=== PATIENT | female | born 2000 | race Two or more races ===

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

== ENCOUNTER 2019-04-03 07:55 | Inpatient (IN) | payer OTHER ==
[2019-04-03] MEDS ORDERED: PROMETHAZINE HCL 25 MG/1 ML VIAL IVPUSH PRN (08:28)
[2019-04-03] MEDS ORDERED: BUTORPHANOL TARTRATE 1 MG/ML VIAL IVPB PRN (08:28)
--- NOTE | 2019-04-03 08:31 | HP ---
Past Medical History - Admission Chief Complaint: IOL History of Present Illness: 18yo @ 41+wks, KARIN 03/25/19 here for scheduled IOL for postdates No VB/LOF. Irreg ctx- unaware. +FM Preg c/b obesity History Source: Patient - Past Medical History PROCESS STRIPPER: No: Alzheimer's, CVA, Dementia, Migraine, Multiple Sclerosis, Peripheral Neuropathy, Parkinson's, Seizure, Syncope, TIA, Vertigo, Other Cardiovascular: No: AFIB, Aneurysm, Aortic Insufficiency, Aortic Stenosis, CAD, CHF, Deep Vein Thrombosis, HTN, Hyperlipdemia, OH, Mitral Insufficiency, Mitral Stenosis, Murmur, Pulmonary Hypertension, Other Pulmonary: No: Asthma, Bronchitis, Cancer, COPD, O2 Dependent, Pneumonia, Previously Intubated, Pulmonary Embolus, Pulmonary Fibrosis, Sleep Apnea, Other Gastrointestinal: No: Ascites, Cancer, Constipation, Crohn's Disease, Diverticulitis, Diverticulosis, Esophageal Varices, Gastritis, GERD, GI Bleed, Hemorrhoids, Hiatal Hernia, Inflamatory Bowel Disease, Irritable Bowel Disease, Pancreatitis, Peptic Ulcer Disease, Ulcerative Colitis, Other Hepatobiliary: No: Cirrhosis, Cholelithiasis, Cholecystitis, Choledocholithiasis , Hepatitis A, Hepatitis B, Hepatitis C, Other Renal/: No: Renal Failure, Renal Inusuff, BPH, Cancer, Hematuria, Hemodialysis , Neurogenic Bladder, Renal Calculi, UTI, Other Reproductive: No: Ectopic , Endometriosis, Fibroids, PID, Polycystic Ovary Syndrome, Postmenopausal, Other ...: 1 ...Para: 0 ... Weeks Gestation by Dates: 41.3 ...EDC by Dates: 03/25/19 Heme/Onc: No: Anemia, B12 Deficiency, Bleeding Disorder, Cancer, Current Chemotherapy, Current Radiation Therapy, Hemochromatosis, Hypercoaguable State, Myeloproliferative Synd, Sickle Cell Disease, Sickle Cell Trait, Thrombocytopenia, Other Infectious Disease: No: AIDS, C-Diff, Herpes Zoster, HIV, MRSA, STD's, Tuberculosis, VREF, Other Psych: No: Addictions, Anxiety, Bipolar, Depression, Panic, Psychosis, Schizophrenia, Other Musculoskeletal: No: Bursitis, Chronic low back pain, Hemiparesis, Hemiplegia, Osteoarthritis, Paraplegia, Other Rheumatology: No: Fibromyalgia, Gout, Lupus, Rheumatoid Arthritis, Sarcoidosis, Vasculitis, Other ENT: No: Allergic Rhinitis, Sinusitis, Other - Past Surgical History Hx Myomectomy: No Hx Transabdominal Cerclage: No - Smoking History Smoking history: Never smoked Have you smoked in the past 12 months: No - Alcohol/Substance Use Hx Alcohol Use: No Home Medications - Allergies Allergies/Adverse Reactions: Allergies Allergy/AdvReac Type Severity Reaction Status Date / Time No Known Allergies Allergy Verified 08/14/18 18:38 Physical Exam - Maternity Constitutional: Yes: Well Nourished, No Distress, Calm - Abdominal Exam/OB Number of Fetuses: Single Presentation: Vertex Contractions: Yes Regularity: Irregular Intensity: Unaware Monitor Mode: External Heart Rate Location: [facility] Category: I Accelerations: Non-Uniform Decelerations: None - Vaginal Exam/OB Vaginal Bleediing: No Speculum Exam: No Dilatation (cm): 0 Effacement (%): 0 Amniotic Membrane Status: Intact Meconium: Light Presentation: Vertex/Position Station: -3 - Physical Exam Edema: No Assessment/Plan 18YO @ 41+wks here for IOL for postdates Admit to L&D Cat I tracing Cytotec for ripening; Vega score: 1 Stadol/Epdiural prn Anticipate REJI Contreras MD
[2019-04-03 08:51] VITALS: BMI 43.1
[2019-04-03 10:00] LABS: BASO % 0.2 % (0-2.0); EOS % 0.7 % (0-4.5); HEMATOCRIT 28.5 % (32.4-45.2); HEMOGLOBIN 9.1 GM/dL (10.7-15.3); LYMPH % 24.2 % (8-40); MCH 24.4 pg (25.7-33.7); MEAN PLT VOLUME 8.7 fl (7.5-11.1); MONO % 6.4 % (3.8-10.2); NEUT % 68.5 % (42.8-82.8); PLATELET COUNT 224 K/MM3 (134-434); RBC 3.75 M/mm3 (3.60-5.2); RDW 16.3 % (11.6-15.6); WHITE BLOOD COUNT 6.5 K/mm3 (4.0-10.0)
[2019-04-03] MEDS: MISOPROSTOL 100 MCG TABLET PO SCH ×4 (10:00→23:15)
[2019-04-03 10:19] LABS: PROTHROMBIN TIME (PATIENT) 11.8 SEC (9.7-13.0)
[2019-04-03 10:22] LABS: BLOOD UREA NITROGEN 8.3 mg/dL (7-18); CALCIUM 8.9 mg/dL (8.5-10.1); CREATININE 0.6 mg/dL (0.55-1.3); POTASSIUM 3.7 mmol/L (3.5-5.1)
[2019-04-03] MEDS: ELECTROLYTE-148 SOLN 1,000 ML IV SCH (14:00)
--- NOTE | 2019-04-03 15:27 | PN ---
Progress Note (short form) - Note Progress Note: Patient counseled regarding induction of labor including but not limited to expectation, risks and complications. All questions answered. Pelvic exam will be deferred for now as patient is comfortable.
[2019-04-04] MEDS ORDERED: DINOPROSTONE 10 MG VAGINAL SUPPOSITORY VG ONE (04:18)
--- NOTE | 2019-04-04 04:25 | PN ---
Ante-Partal Exam - Subjective Subjective: Patient evaluated for progression of induction. Comfortable in bed Vital Signs: Vital Signs Temperature 97.5 F L 04/04/19 00:00 Pulse Rate 81 04/04/19 00:00 Respiratory Rate 20 04/04/19 00:00 Blood Pressure 112/60 04/04/19 00:00 O2 Sat by Pulse Oximetry (%) Bleeding: No Headache: No Visual changes: No Right upper quadrant pain: No Pain (scale 1-10): 1 (comfortable) - Contractions Contractions: No Regularity: Irritability Intensity: Unaware Monitor Mode: External - Exam during Labor Heart Rate: 120 (reactive) Variability: Moderate Category: I Monitor Accelerations: Present Monitor Decelerations: None Exam: Vaginal (cervidil place in vaginal vault) Dilatation (cm): 0.5 Effacement (%): 30 Amniotic Membrane Status: Intact Presentation: Vertex Station: -3 - Assessment/Plan Assessment/Plan: 18 y/o G1 @ 41.3wks, induction of labor, reactive FHT, S/P cytotec PO protocol with minimal cervical change, Cervidil in place -Continue IOL -Continuous EFM -Re-evaluate accordingly
[2019-04-04] MEDS: ELECTROLYTE-148 SOLN 1,000 ML IV SCH ×2 (07:00→21:00)
--- NOTE | 2019-04-04 09:51 | PN ---
Progress Note (short form) - Note Progress Note: cx cl;p,vx =3 mi, fhr cat 1, mild irregular contraction , has cervidil
[2019-04-04] MEDS: DEXTROSE 5%-LACTATED RINGERS 1,000 ML IV SCH ×2 (13:00→22:30)
--- NOTE | 2019-04-04 20:38 | PN ---
Progress Note (short form) - Note Progress Note: cx clp vx -3 mi, fhr cat 1, irregular contraction , cervidil was removed at 5 pm , declined pitocin , requesting c/s
[2019-04-04] MEDS ORDERED: CITRIC ACID/SODIUM CITRATE 30 ML UNIT-DOSE CUP PO ONE (20:48)
[2019-04-04] MEDS ORDERED: OXYTOCIN 20 UNITS in 0.9% NS 20 UNIT/1,000 ML INFUS.BAG IV ONE (20:57)
[2019-04-04] MEDS ORDERED: morphine SULFATE/PF 0.5 MG/ML (2cc Syringe - QUVA) ONE (21:00)
[2019-04-04] MEDS ORDERED: ePHEDrine SULFATE 50 MG/1 ML AMPULE ONE (21:00)
[2019-04-04] MEDS ORDERED: ceFAZolin SODIUM 1 GM VIAL ONE (21:22)
[2019-04-04] MEDS ORDERED: BENZOCAINE 28 GM HEMORRHOIDAL OINTMENT PR PRN (22:19)
[2019-04-04] MEDS ORDERED: IBUPROFEN 800 MG/8 ML IJ IVPB PRN (22:19)
[2019-04-04] MEDS ORDERED: oxyCODONE HCL 5 MG TABLET PO PRN ×2 (22:19)
[2019-04-04] MEDS ORDERED: WITCH HAZEL 50% (TUCKS) 40 PAD/JAR PAD TP PRN (22:19)
[2019-04-04] MEDS ORDERED: BENZOCAINE 20% 57 GM BOTTLE TP PRN (22:19)
[2019-04-04] MEDS ORDERED: METHYLERGONOVINE MALEATE 0.2 MG/1 ML AMP IM PRN (22:19)
[2019-04-04] MEDS ORDERED: diphenhydrAMINE HCL 25 MG CAPSULE (FP) PO PRN (22:19)
--- NOTE | 2019-04-04 22:24 | OP ---
Operative Note - Note: Operative Date: 04/04/19 Pre-Operative Diagnosis: post date ,failed induction Operation: primaryLST c/s Findings: baby girl ROT , 9/9 . light mec, WT 8.5 lb Surgeon: Rashaun Christianson Inorganic Chemist: Vince Vela Anesthesiologist/INSTRUCTOR FLYING: Jennifer Tello Anesthesia: Spinal Specimens Removed: placenta Estimated Blood Loss (mls): 700 Drains & Tubes with Location: tyler Blood Volume Replaced (mls): 0 Operative Report Dictated: Yes
[2019-04-04] MEDS ORDERED: OXYTOCIN 20 UNITS in 0.9% NS 20 UNIT/1,000 ML INFUS.BAG IV SCH (22:30)
[2019-04-04] MEDS ORDERED: ONDANSETRON 4 MG/2 ML VIAL IVPUSH PRN (22:39)
[2019-04-04] MEDS: OXYTOCIN 20 UNITS in 0.9% NS 20 UNIT/1,000 ML INFUS.BAG IV SCH (23:30)
[2019-04-05] MEDS ORDERED: OXYTOCIN 20 UNITS in 0.9% NS 20 UNIT/1,000 ML INFUS.BAG IV ONE (00:15)
[2019-04-05] MEDS: CEFAZOLIN 1 GM/D5W 1 GM/50 ML BAG IVPB SCH ×2 (01:32→09:37)
[2019-04-05 08:08] LABS: BASO % 0.3 % (0-2.0); EOS % 0.2 % (0-4.5); HEMATOCRIT 23.4 % (32.4-45.2); HEMOGLOBIN 7.5 GM/dL (10.7-15.3); LYMPH % 17.2 % (8-40); MCH 24.7 pg (25.7-33.7); MCHC 32.2 g/dl (32.0-36.0); MEAN CELL VOLUME 76.8 fl (80-96); MEAN PLT VOLUME 8.8 fl (7.5-11.1); MONO % 8.7 % (3.8-10.2); NEUT % 73.6 % (42.8-82.8); PLATELET COUNT 187 K/MM3 (134-434); RBC 3.05 M/mm3 (3.60-5.2); RDW 16.6 % (11.6-15.6); WHITE BLOOD COUNT 7.2 K/mm3 (4.0-10.0)
[2019-04-05] MEDS: ENOXAPARIN NA (PORCINE) 40 MG/0.4 ML DISP.SYRIN SQ SCH (09:37)
[2019-04-05] MEDS: IBUPROFEN 600 MG TABLET (FP) PO PRN ×2 (09:38→18:24)
[2019-04-05] MEDS: SIMETHICONE 80 MG TAB.CHEW (FP) PO PRN ×2 (09:39→18:24)
[2019-04-05] MEDS: ACETAMINOPHEN 325 MG TABLET (FP) PO PRN (09:39)
--- NOTE | 2019-04-05 12:04 | PN ---
Post Progress Note - Subjective Subjective: c/o pain scale 8/10 at 7.30 AM pt in bed , tyler in situ , draining mojgan color urine Post Day: 1 Type of Delivery: Primary C/S Vital Signs: Vital Signs Temperature 98.4 F 04/05/19 05:39 Pulse Rate 93 H 04/05/19 05:39 Respiratory Rate 20 04/05/19 06:00 Blood Pressure 115/59 L 04/05/19 05:39 O2 Sat by Pulse Oximetry (%) 100 04/04/19 23:15 Breast Exam: Yes: Soft, Other (soft. planning to BF ). No: Engorged Uterus: Yes: Fundus Firm, Fundus below umbilicus, Other (tender ) Incision: Yes: Dressing dry and intact. No: Oozing Abdomen/GI: Yes: Abdomen soft (bs active ), Abdominal Distention (obese abdomen ), Tender, Tolerating PO (not yet taken po fluids unti 7.30 aM ). No: Passing flatus Lochia: Yes: Rubra Lochia, amount: Moderate Extremities: Yes: Calves non-tender (SCD in situ ) Perineum: Yes: Intact Activity: Other (not OOB yet ) - Labs Labs: CBC WBC 7.2 K/mm3 (4.0-10.0) 04/05/19 07:32 RBC 3.05 M/mm3 (3.60-5.2) L 04/05/19 07:32 Hgb 7.5 GM/dL (10.7-15.3) L 04/05/19 07:32 Hct 23.4 % (32.4-45.2) L D 04/05/19 07:32 MCV 76.8 fl (80-96) L 04/05/19 07:32 MCH 24.7 pg (25.7-33.7) L 04/05/19 07:32 MCHC 32.2 g/dl (32.0-36.0) 04/05/19 07:32 RDW 16.6 % (11.6-15.6) H 04/05/19 07:32 Plt Count 187 K/MM3 (134-434) 04/05/19 07:32 MPV 8.8 fl (7.5-11.1) 04/05/19 07:32 Absolute Neuts (auto) 5.3 K/mm3 (1.5-8.0) 04/05/19 07:32 Neutrophils % 73.6 % (42.8-82.8) 04/05/19 07:32 Lymphocytes % 17.2 % (8-40) D 04/05/19 07:32 Monocytes % 8.7 % (3.8-10.2) 04/05/19 07:32 Eosinophils % 0.2 % (0-4.5) 04/05/19 07:32 Basophils % 0.3 % (0-2.0) 04/05/19 07:32 Nucleated RBC % 0 % (0-0) 04/05/19 07:32 Other Findings, Remarks: RS cta I/O 5050/1200 Problem List - Problems (1) care following delivery Code(s): Z39.2 - ENCOUNTER FOR ROUTINE FOLLOW-UP Assessment/Plan pod c/s #1 stable hemodynamically severe Anemia post op Plan : ct PO care , oob with support when tyler is taken out encourage po fluids 7 deep breathing
--- NOTE | 2019-04-05 12:50 | PN ---
Progress Note (short form) - Note Progress Note: Anesthesia POD#1 S/P under spinal Anesthesia and Duramorph VSS,no N/V,pain is mild,legs have full strength. Tere Weiss MD.
[2019-04-05] MEDS: DEXTROSE 5%-LACTATED RINGERS 1,000 ML IV SCH (21:47)
[2019-04-05] MEDS ORDERED: BISACODYL 10 MG SUPP.RECT RC PRN (22:19)
[2019-04-06] MEDS: DEXTROSE 5%-LACTATED RINGERS 1,000 ML IV SCH (02:15)
[2019-04-06] MEDS: OXYTOCIN 20 UNITS in 0.9% NS 20 UNIT/1,000 ML INFUS.BAG IV SCH (02:15)
[2019-04-06] MEDS: ELECTROLYTE-148 SOLN 1,000 ML IV SCH (02:15)
[2019-04-06] MEDS: MISOPROSTOL 100 MCG TABLET PO SCH (02:17)
[2019-04-06] MEDS: IBUPROFEN 600 MG TABLET (FP) PO PRN ×2 (06:07→20:14)
[2019-04-06] MEDS: ACETAMINOPHEN 325 MG TABLET (FP) PO PRN ×2 (06:07→20:14)
[2019-04-06] MEDS: SIMETHICONE 80 MG TAB.CHEW (FP) PO PRN ×2 (06:07→20:15)
--- NOTE | 2019-04-06 08:20 | PN ---
Post Progress Note - Subjective Subjective: Pain controlled. No fevers/chills. No N/V. No fevers/chills Post Day: 2 Type of Delivery: Primary C/S Vital Signs: Vital Signs Temperature 97.7 F 04/05/19 22:00 Pulse Rate 86 04/05/19 22:00 Respiratory Rate 18 04/05/19 22:00 Blood Pressure 115/65 04/05/19 22:00 O2 Sat by Pulse Oximetry (%) 100 04/04/19 23:15 Uterus: Yes: Fundus Firm Incision: Yes: Dressing dry and intact Abdomen/GI: Yes: Abdomen soft, Tolerating PO Lochia: Yes: Rubra Lochia, amount: Small Extremities: Yes: Calves non-tender Activity: Ambulating - Labs Labs: CBC WBC 7.2 K/mm3 (4.0-10.0) 04/05/19 07:32 RBC 3.05 M/mm3 (3.60-5.2) L 04/05/19 07:32 Hgb 7.5 GM/dL (10.7-15.3) L 04/05/19 07:32 Hct 23.4 % (32.4-45.2) L D 04/05/19 07:32 MCV 76.8 fl (80-96) L 04/05/19 07:32 MCH 24.7 pg (25.7-33.7) L 04/05/19 07:32 MCHC 32.2 g/dl (32.0-36.0) 04/05/19 07:32 RDW 16.6 % (11.6-15.6) H 04/05/19 07:32 Plt Count 187 K/MM3 (134-434) 04/05/19 07:32 MPV 8.8 fl (7.5-11.1) 04/05/19 07:32 Absolute Neuts (auto) 5.3 K/mm3 (1.5-8.0) 04/05/19 07:32 Neutrophils % 73.6 % (42.8-82.8) 04/05/19 07:32 Lymphocytes % 17.2 % (8-40) D 04/05/19 07:32 Monocytes % 8.7 % (3.8-10.2) 04/05/19 07:32 Eosinophils % 0.2 % (0-4.5) 04/05/19 07:32 Basophils % 0.3 % (0-2.0) 04/05/19 07:32 Nucleated RBC % 0 % (0-0) 04/05/19 07:32 Assessment/Plan 18YO s/p PTLCS, POD#2 Routine PP care PO pain control Labs pending Anticipate d/c to home on POD#3 Mohini Contreras MD
--- NOTE | 2019-04-06 08:46 | OP ---
DATE OF OPERATION: 04/04/2019 PREOPERATIVE DIAGNOSIS: , post dates, Cervidil induction, failure to dilate. POSTOPERATIVE DIAGNOSIS: , post dates, Cervidil induction, failure to dilate. PROCEDURE: Primary low-segment transverse section. SURGEON: Rashaun Christianson MD ANESTHESIA: Spinal. ANESTHESIOLOGIST: Jennifer Tello, REF-DO ESTIMATED BLOOD LOSS: 700 mL. SENIOR BRANCH MANAGER: Vince Vela MD DESCRIPTION OF PROCEDURE: Patient was taken to the operating room. After adequate spinal anesthesia, abdomen and perineum were prepped and draped. Pfannenstiel abdominal skin incision was made. Abdominal wall was cut layer by layer. Anterior peritoneum was exposed and incised. Upon entering the abdominal cavity, lower uterine segment was identified and uterovesical fold of peritoneum established. Bladder was pushed down. Then, with the lower blade of the Darren retractor in the pelvis, a low transverse uterine incision was made. Incision extended laterally. Amniotic sac was entered. Light meconium amniotic fluid noted. Head delivered. Nasopharynx was suctioned. Live baby was delivered without any difficulty. Placenta was delivered manually. Uterine cavity was cleaned of all remaining tissue. Uterine incision was closed in 2 layers, first layer with 0 Biosyn continuous suture, the second layer with 0 Biosyn imbricating the first layer. Bladder flap was closed with 0 Biosyn continuous suture. Both tubes and ovaries were checked and normal. No active bleeding was seen. All the lap pads, sponge, and instrument counts were correct. Then, peritoneum was closed with 0 Biosyn continuous suture. Muscles were brought together with interrupted sutures of 0 Biosyn. Fascia was closed with 0 Biosyn continuous suture, subcutaneous fat with interrupted suture of 0 Biosyn, and skin was closed with johnathon. Patient tolerated the procedure well, left the OR in good condition. Letty [id number]
[2019-04-06] MEDS: ENOXAPARIN NA (PORCINE) 40 MG/0.4 ML DISP.SYRIN SQ SCH (09:53)
[2019-04-06] MEDS ORDERED: SENNOSIDES/DOCUSATE COMBO (SENNA PLUS) TABLET (UD) PO PRN (22:00)
--- NOTE | 2019-04-07 06:09 | PN ---
Progress Note (short form) - Note Progress Note: pod 3s/p c/s anemia, asymptomatic doing well, ambulating CBC, BMP 04/05/19 07:32 04/03/19 09:15 Last Vital Signs Temp Pulse Resp BP Pulse Ox 99.0 F 89 20 122/72 99 04/06/19 21:06 04/06/19 23:13 04/06/19 21:06 04/06/19 23:13 04/06/19 23:15 abdomen soft, no distension, no cva incision dry, clean , no discharge no excess vaginal bleeding, no calf tenderness pod3 anemia , asymptomatic advised iron, vit
[2019-04-07 08:20] LABS: BASO % 0.3 % (0-2.0); EOS % 2.6 % (0-4.5); HEMATOCRIT 20.8 % (32.4-45.2); LYMPH % 26.4 % (8-40); MCH 24.8 pg (25.7-33.7); MCHC 32.5 g/dl (32.0-36.0); MEAN CELL VOLUME 76.5 fl (80-96); MEAN PLT VOLUME 8.6 fl (7.5-11.1); MONO % 8.7 % (3.8-10.2); PLATELET COUNT 217 K/MM3 (134-434); RBC 2.72 M/mm3 (3.60-5.2); RDW 16.7 % (11.6-15.6); WHITE BLOOD COUNT 5.8 K/mm3 (4.0-10.0)
[2019-04-07 08:25] LABS: HEMOGLOBIN 6.8 GM/dL (10.7-15.3)
--- NOTE | 2019-04-07 08:52 | PN ---
Progress Note (short form) - Note Progress Note: no dizziness ,no excess vaginal bleeding CBC, BMP 04/07/19 07:32 04/03/19 09:15 anemai , asymptomatic , blood transfusion discussed , wants to wait , will start on iron, vit , repeat cbc today cancell d/c home today
[2019-04-07] MEDS: ENOXAPARIN NA (PORCINE) 40 MG/0.4 ML DISP.SYRIN SQ SCH (09:45)
[2019-04-07] MEDS: PRENATAL VITAMINS W/ FOLIC ACID TABLET (FP) PO SCH (09:51)
[2019-04-07] MEDS: FERROUS SO4 325 MG TABLET (FP) PO SCH ×2 (11:48→17:05)
[2019-04-07] MEDS: IBUPROFEN 600 MG TABLET (FP) PO PRN (11:53)
[2019-04-07] MEDS: ACETAMINOPHEN 325 MG TABLET (FP) PO PRN (11:54)
[2019-04-07] MEDS: SIMETHICONE 80 MG TAB.CHEW (FP) PO PRN (11:54)
[2019-04-08 06:51] LABS: BASO % 0.5 % (0-2.0); EOS % 3.4 % (0-4.5); HEMATOCRIT 21.1 % (32.4-45.2); LYMPH % 31.9 % (8-40); MCH 24.9 pg (25.7-33.7); MCHC 32.5 g/dl (32.0-36.0); MEAN CELL VOLUME 76.6 fl (80-96); MEAN PLT VOLUME 8.3 fl (7.5-11.1); NEUT % 58.2 % (42.8-82.8); PLATELET COUNT 230 K/MM3 (134-434); RBC 2.75 M/mm3 (3.60-5.2); RDW 16.6 % (11.6-15.6); WHITE BLOOD COUNT 5.2 K/mm3 (4.0-10.0)
[2019-04-08 07:52] LABS: HEMOGLOBIN 6.8 GM/dL (10.7-15.3)
[2019-04-08] MEDS: SIMETHICONE 80 MG TAB.CHEW (FP) PO PRN (08:11)
[2019-04-08] MEDS: ACETAMINOPHEN 325 MG TABLET (FP) PO PRN (08:12)
[2019-04-08] MEDS: IBUPROFEN 600 MG TABLET (FP) PO PRN (08:12)
[2019-04-08] MEDS: FERROUS SO4 325 MG TABLET (FP) PO SCH ×2 (08:12→12:52)
[2019-04-08] MEDS: PRENATAL VITAMINS W/ FOLIC ACID TABLET (FP) PO SCH (10:15)
[2019-04-08] MEDS: ENOXAPARIN NA (PORCINE) 40 MG/0.4 ML DISP.SYRIN SQ SCH (10:15)
--- NOTE | 2019-04-08 10:57 | PN ---
Post Progress Note - Subjective Subjective: Pain controlled. No N/V. Ambulating w/o difficulty. No dizziness Post Day: 4 Type of Delivery: Primary C/S Vital Signs: Vital Signs Temperature 98.2 F 04/07/19 21:50 Pulse Rate 95 H 04/07/19 21:50 Respiratory Rate 20 04/07/19 21:50 Blood Pressure 129/71 04/07/19 21:50 O2 Sat by Pulse Oximetry (%) 99 04/06/19 23:15 Uterus: Yes: Fundus Firm, Fundus below umbilicus Incision: Yes: Dressing dry and intact, [place] intact Abdomen/GI: Yes: Abdomen soft, Passing flatus, Tolerating PO Lochia: Yes: Rubra Lochia, amount: Small Extremities: Yes: Calves non-tender Perineum: Yes: Intact Activity: Ambulating - Labs Labs: CBC WBC 5.2 K/mm3 (4.0-10.0) 04/08/19 05:30 RBC 2.75 M/mm3 (3.60-5.2) L 04/08/19 05:30 Hgb 6.8 GM/dL (10.7-15.3) L* 04/08/19 05:30 Hct 21.1 % (32.4-45.2) L 04/08/19 05:30 MCV 76.6 fl (80-96) L 04/08/19 05:30 MCH 24.9 pg (25.7-33.7) L 04/08/19 05:30 MCHC 32.5 g/dl (32.0-36.0) 04/08/19 05:30 RDW 16.6 % (11.6-15.6) H 04/08/19 05:30 Plt Count 230 K/MM3 (134-434) 04/08/19 05:30 MPV 8.3 fl (7.5-11.1) 04/08/19 05:30 Absolute Neuts (auto) 3.0 K/mm3 (1.5-8.0) 04/08/19 05:30 Neutrophils % 58.2 % (42.8-82.8) 04/08/19 05:30 Lymphocytes % 31.9 % (8-40) D 04/08/19 05:30 Monocytes % 6.0 % (3.8-10.2) 04/08/19 05:30 Eosinophils % 3.4 % (0-4.5) 04/08/19 05:30 Basophils % 0.5 % (0-2.0) 04/08/19 05:30 Nucleated RBC % 0 % (0-0) 04/08/19 05:30 Assessment/Plan 18YO s/p PTLCS, POD#4 Routine PP care PO pain control Labs reviewed; show stable anemia, iron BID discussed vs transfusion. Declines transfusion. Amenable to iron twice daily Anticipate d/c to home today; RTO 1 week for johnathon removal and repeat CBC Mohini Contreras MD
[2019-04-08 15:05] VITALS: BP 133/72; PULSE 93; TEMP 98.5
--- NOTE | 2019-04-10 13:49 | PATH ---
Surgical Pathology Report Patient Name: SRINI SHAH [facility]. Rec. #: [id number] /Age/Gender: 2000 (Age: 18) / F Account: [id number] Location: [facility] OBS/PELLETIZER Taken: 04/04/2019 Received: 04/05/2019 Reported: 04/10/2019 Physicians: Rashaun Christianson M.D. Specimen(s) Received PLACENTA Clinical History post dates Final Diagnosis PLACENTA: THIRD TRIMESTER PLACENTA. TRIVASCULAR CORD. MEMBRANES WITH NO DIAGNOSTIC ABNORMALITIES. Electronically Signed Gennaro Chacon M.D. Gross Description The specimen is received fresh labeled placenta and is a 630 gram, 21 x19 x 2.5cm. placenta with attached membranes and umbilical cord. The attached membranes are glistening, translucent, and insert marginally. The umbilical cord measures 18 cm. in length and averages 1.3 cm. in diameter. The cord inserts centrally, 7 centimeter to the nearest margin. No true knots or strictures are identified. Cut surface of the umbilical cord reveals 3 vessels. Sectioning reveals red-brown, spongy parenchyma. No lesions are identified. Dialysis Nurse sections are submitted in three cassettes as follows: 1- membrane rolls and umbilical cord; 2-3- full thickness sections of placenta KWS/04/05/2019 [id number]/04/05/2019
== END 2019-04-08 13:30 | disposition home or self-care (01) | DRG 540 ==
LOC: JLDR 07:55 → J3W 04-05 00:48
PROVIDERS: ADMIT Obstetrics & Gynecology; ATTEND Obstetrics & Gynecology
PROC: 10D00Z1 Extraction of Products of Conception, Low, Open Approach (ICD-10-PCS; principal; 2019-04-04)
DX: O48.0 Post-term pregnancy (principal); O99.02 Anemia complicating childbirth; Z3A.41 41 weeks gestation of pregnancy; D64.9 Anemia, unspecified; O62.0 Primary inadequate contractions; Z37.0 Single live birth
CPT/HCPCS: 36415; 36600; 80048; 82803; 85025; 85610; 86593; 86850; 86900; 86901; 88307-TC

== ENCOUNTER 2020-07-27 21:44 | Emergency (ER) | payer OTHER ==
[2020-07-27 21:54] VITALS: BP 121/75; PULSE 107; TEMP 98.4; BMI 44.9
[2020-07-27] MEDS ORDERED: diphenhydrAMINE HCL 25 MG CAPSULE (FP) PO ONE ×2 (23:07→23:11)
== END 2020-07-27 23:37 | disposition home or self-care (01) ==
LOC: JER 21:44
DX: R21 Rash and other nonspecific skin eruption (principal)
CPT/HCPCS: 99283-25

== ENCOUNTER 2020-12-17 12:44 | Emergency (ER) | payer OTHER ==
[2020-12-17 13:05] VITALS: BP 122/76; PULSE 84; TEMP 98.5; BMI 43.4
[2020-12-17] MEDS ORDERED: diazePAM 5 MG TABLET PO ONE (13:20)
[2020-12-17] MEDS ORDERED: diazePAM 5 MG TABLET ONE (13:22)
== END 2020-12-17 13:30 | disposition home or self-care (01) ==
LOC: JERFT 12:44
DX: M62.838 Other muscle spasm (principal)
CPT/HCPCS: 99283-25

== ENCOUNTER 2024-05-01 19:01 | Emergency (ER) | payer BC, OTHER ==
[2024-05-01 19:09] VITALS: BP 146/93; PULSE 86; RESP 18; TEMP 98.1; BMI 47.2
[2024-05-01 20:18] LABS: EPI CELLS >36 /uL (0-25.1); HYALINE CASTS 4 /uL (0-3.1); URINE APPEARANCE TURBID; URINE BILIRUBIN 2+ (NEGATIVE); URINE COLOR RED; URINE GLUCOSE (UA) NEGATIVE (NEGATIVE); URINE KETONE NEGATIVE (NEGATIVE); URINE LEUK ESTERASE 1+ (NEGATIVE); URINE NITRITE POSITIVE (NEGATIVE); URINE PROTEIN 2+ (NEGATIVE); URINE RBC 38690 /uL (0-23.9); URINE UROBILINOGEN 0.2 mg/dL (0.2-1.0); URINE WBC 33 /uL (0-25.8)
[2024-05-01 20:39] LABS: HCG,QUALITATIVE URINE Negative
[2024-05-01] MEDS ORDERED: SULFAMETHOXAZOLE/TRIMETHOPRIM 800MG/160MG D.S. TABLET ONE (20:57)
[2024-05-01] MEDS ORDERED: IBUPROFEN 600 MG TABLET (FP) PO ONE (20:57)
[2024-05-01] MEDS ORDERED: ACETAMINOPHEN 500 MG TABLET (FP) ONE (20:58)
[2024-05-01] MEDS: ACETAMINOPHEN 500 MG TABLET (FP) PO ONE (21:05)
[2024-05-01] MEDS: IBUPROFEN 600 MG TABLET (FP) PO ONE (21:05)
[2024-05-01] MEDS: SULFAMETHOXAZOLE/TRIMETHOPRIM 800MG/160MG D.S. TABLET PO ONE (21:05)
[2024-05-01 22:13] LABS: URINE BACTERIA >2000 /uL (0-1359)
== END 2024-05-01 21:11 | disposition home or self-care (01) ==
LOC: JER 19:01
DX: N39.0 Urinary tract infection, site not specified (principal); R10.2 Pelvic and perineal pain; N93.9 Abnormal uterine and vaginal bleeding, unspecified
CPT/HCPCS: 81003; 84703; 87086; 99283-25

== ENCOUNTER 2024-05-11 18:28 | Emergency (ER) | payer BC, OTHER ==
[2024-05-11 18:43] VITALS: BP 124/84; PULSE 81; RESP 18; TEMP 98.5; BMI 44.2
== END 2024-05-11 19:49 | disposition home or self-care (01) ==
LOC: JERFT 18:28
DX: L60.0 Ingrowing nail (principal)
CPT/HCPCS: 99282-25